=== PATIENT | male | born 1950 | race Caucasian/White ===

== ENCOUNTER → 2016-05-16 | Outpatient (CLI) | payer MEDICARE, BC, OTHER ==
[~2016-05-16] MED LIST: NORC5TAB PO
--- NOTE | 2016-05-21 08:53 | SLEEPCENT ---
DATE OF PROCEDURE: 05/16/2016 REQUESTING PROVIDER: Nayla Mota NP INTERPRETATION: Nocturnal polysomnography was performed due to concern for obstructive sleep apnea syndrome in this patient with a history of excessive somnolence, nonrestorative sleep and morning headaches. 9 hours and 27 minutes of data were reviewed. Of these, 5 hours and 13 minutes of sleep were identified. Sleep latency was normal at 8.5 minutes. Rapid eye movement (REM) latency was normal at 91 minutes. Sleep architecture showed fragmentation, but four REM periods were appreciated. Overall sleep efficiency was 95%. The patient's electrocardiogram (EKG) showed a sinus rhythm with an average heart rate of 56 beats per minute. Pulse rate ranged 40 to 75 beats per minute. Electroencephalogram (EEG) showed normal waveforms for awake and sleep. There were 218 respiratory events identified of 10 seconds in duration or greater for an apnea-hypopnea index of 25.5. The events were more commonly obstructive but48 central and mixed apneas were also seen. The respiratory events were not exclusive to sleep stage. They were more frequent in the supine posture, but not exclusive to that position. Arousals from respiratory events occurred 9 times per hour. Oxygen desaturations were seen into the low 80s. There was limb activity but minimal arousals from limb activity, and the remaining measures of sleep physiology were normal. IMPRESSION: Moderate to severe complex obstructive sleep apnea syndrome (G47.33). Apnea-hypopnea index of 25.5. RECOMMENDATIONS: The patient should be encouraged to return to the sleep disorder center for pressure therapy. Given the occurrence of central events, bilevel device may be necessary and a back up rate may be needed. In the interim, alcohol and sedative avoidance should be practiced and caution exercised during the operation of motor vehicles.
== END ==
LOC: M SLEEP 19:22
PROVIDERS: ATTEND Nurse Practitioner Adult Health
DX: G47.33 Obstructive sleep apnea (adult) (pediatric) (principal)

== ENCOUNTER → 2016-07-04 | Outpatient (CLI) | payer MEDICARE, BC, OTHER ==
[~2016-07-04] MED LIST changes: +NORC1TAB4 PO; -NORC5TAB PO
--- NOTE | 2016-07-10 06:40 | SLEEPCENT ---
DATE OF PROCEDURE: 07/04/2016 ORDERED BY: Nayla Mota. Nocturnal polysomnography was performed for the titration of pressure therapy in this patient with obstructive sleep apnea syndrome, apnea-hypopnea index of 25. For testing, the patient was fit with a [employer] Simplus full face mask of small size was used, 4 cm of water pressure were applied to the circuit and the lights were extinguished. 8 hours and 1 minute of data were reviewed. There were 440 minutes of sleep identified. Sleep latency was prolonged at 15 minutes. REM latency was prolonged at 201 minutes. Sleep architecture showed poor progression but there were 3 rapid eye movement (REM) periods appreciated. Overall sleep efficiency was 94.1%. Patient's EKG showed a sinus rhythm with an average heart rate of 65 beats per minute. EEG showed reasonably normal wave forms for wake and sleep. Respiratory events were fully palliated with CPAP at a pressure of 8. Some limb activity was appreciated on this study more prominently than on the diagnostic night. IMPRESSION: Obstructive sleep apnea syndrome (G47.33). RECOMMENDATION: Nightly use of pressure therapy 8 cm of water.
== END ==
LOC: M SLEEP 19:50
PROVIDERS: ATTEND Nurse Practitioner Adult Health
DX: G47.33 Obstructive sleep apnea (adult) (pediatric) (principal)

== ENCOUNTER 2017-12-22 09:34 | Day surgery (SDC) | payer MEDICARE, BC, OTHER ==
[2017-12-22] MEDS ORDERED: NS 1,000 ML IV (10:00)
[2017-12-22] MEDS ORDERED: PROPOFOL 200 MG/20 ML VIAL As Ordered (10:48)
== END 2017-12-22 11:33 | disposition home or self-care (01) ==
LOC: M OPP 09:34
DX: Z12.11 Encounter for screening for malignant neoplasm of colon (principal); Z86.010 Personal history of colon polyps; E78.5 Hyperlipidemia, unspecified; M19.90 Unspecified osteoarthritis, unspecified site; G47.30 Sleep apnea, unspecified; F32.9 Major depressive disorder, single episode, unspecified; F41.9 Anxiety disorder, unspecified; R06.83 Snoring; Z87.891 Personal history of nicotine dependence; Z79.82 Long term (current) use of aspirin
CPT/HCPCS: G0105

== ENCOUNTER → 2021-04-04 | Outpatient (REF) | payer MEDICARE, OTHER ==
[~2021-04-04] MED LIST changes: +ASPI81TA26 PO; -NORC1TAB4 PO; +NORC1TAB7 PO
== END ==
LOC: M SFHCADAM 09:49
PROVIDERS: ATTEND Physician Assistant
DX: Z86.79 Personal history of other diseases of the circulatory system (principal); Z12.5 Encounter for screening for malignant neoplasm of prostate
CPT/HCPCS: G0103; G0463

== ENCOUNTER → 2022-05-27 | Outpatient (REF) | payer MEDICARE, OTHER ==
[2022-05-27 13:28] LABS: HEMATOCRIT 43.8 % (42.0-52.0); HEMOGLOBIN 15.1 g/dl (13.5-17.5); MEAN CORPUSCULAR HEMOGLOBIN 31.3 pg (27.0-33.0); MEAN CORPUSCULAR HGB CONC 34.5 g/dl (32.0-36.5); MEAN CORPUSCULAR VOLUME 90.7 fl (80.0-96.0); PLATELET COUNT, AUTOMATED 181 10^3/uL (150-450); RED BLOOD COUNT 4.83 10^6/uL (4.30-6.10); WHITE BLOOD COUNT 6.6 10^3/uL (4.0-10.0)
[2022-05-27 13:54] LABS: ALBUMIN 3.6 G/DL (3.2-5.2); ALKALINE PHOSPHATASE 136 U/L (46-116); ALT/SGPT 47 U/L (7.0-40); AST/SGOT 29 U/L (<34); BILIRUBIN,TOTAL 0.8 MG/DL (0.3-1.2); BLOOD UREA NITROGEN 16 MG/DL (9-23); CALCIUM LEVEL 9.6 MG/DL (8.3-10.6); CARBON DIOXIDE LEVEL 30 MMOL/L (20-31); CHLORIDE LEVEL 104 MMOL/L (98-107); CREATININE FOR GFR 1.03 MG/DL (0.70-1.30); GLOMERULAR FILTRATION RATE > 60.0 (>42); GLUCOSE, FASTING 101 MG/DL (74-106); POTASSIUM SERUM 4.7 MMOL/L (3.5-5.1); SODIUM LEVEL 140 MMOL/L (136-145)
[2022-05-27 15:30] LABS: TOTAL PROTEIN 6.5 G/DL (5.7-8.2)
== END ==
LOC: M SFHCADAM 08:04
PROVIDERS: ATTEND Physician Assistant
DX: E78.00 Pure hypercholesterolemia, unspecified (principal); Z86.79 Personal history of other diseases of the circulatory system

== ENCOUNTER → 2022-06-04 | Outpatient (REF) | payer MEDICARE, OTHER ==
[2022-06-04 14:28] LABS: CHOLESTEROL RISK RATIO 3.61 (<5); HDL CHOLESTEROL 44.3 MG/DL (>40); LDL CHOLESTEROL 92.1 MG/DL (<100); NON-HDL-C 115.7 MG/DL
== END ==
LOC: M SFHCADAM 09:45
PROVIDERS: ATTEND Physician Assistant
DX: E78.00 Pure hypercholesterolemia, unspecified (principal); Z12.5 Encounter for screening for malignant neoplasm of prostate

== ENCOUNTER → 2023-06-09 | Outpatient (REF) | payer MEDICARE, OTHER ==
[2023-06-09 13:08] LABS: HEMOGLOBIN 11.7 g/dl (13.5-17.5); MEAN CORPUSCULAR HEMOGLOBIN 25.4 pg (27.0-33.0); MEAN CORPUSCULAR HGB CONC 30.8 g/dl (32.0-36.5); MEAN CORPUSCULAR VOLUME 82.4 fl (80.0-96.0); PLATELET COUNT, AUTOMATED 196 10^3/uL (150-450); RED BLOOD COUNT 4.61 10^6/uL (4.30-6.10)
[2023-06-09 13:14] LABS: PSA SCREENING 0.75 NG/ML (< 4.00)
[2023-06-09 13:16] LABS: ALBUMIN 3.9 G/DL (3.2-5.2); ALKALINE PHOSPHATASE 139 U/L (46-116); ALT/SGPT 31 U/L (7.0-40); AST/SGOT 19 U/L (<34); BILIRUBIN,TOTAL 0.5 MG/DL (0.3-1.2); BLOOD UREA NITROGEN 18 MG/DL (9-23); CALCIUM LEVEL 8.6 MG/DL (8.3-10.6); CARBON DIOXIDE LEVEL 28 MMOL/L (20-31); CHLORIDE LEVEL 106 MMOL/L (98-107); CHOLESTEROL LEVEL 151 MG/DL (<200); CHOLESTEROL RISK RATIO 3.36 (<5); CREATININE FOR GFR 0.97 MG/DL (0.70-1.30); GLOMERULAR FILTRATION RATE > 60.0 (>42); GLUCOSE, FASTING 99 MG/DL (74-106); HDL CHOLESTEROL 44.9 MG/DL (>40); LDL CHOLESTEROL 79.7 MG/DL (<100); NON-HDL-C 106.1 MG/DL; POTASSIUM SERUM 4.7 MMOL/L (3.5-5.1); SODIUM LEVEL 139 MMOL/L (136-145); TOTAL PROTEIN 6.7 G/DL (5.7-8.2); TRIGLYCERIDES LEVEL 132 MG/DL (<150)
== END ==
LOC: M SFHCADAM 08:59
PROVIDERS: ATTEND Physician Assistant
DX: E78.00 Pure hypercholesterolemia, unspecified (principal); Z86.79 Personal history of other diseases of the circulatory system; Z12.5 Encounter for screening for malignant neoplasm of prostate; G47.33 Obstructive sleep apnea (adult) (pediatric)
CPT/HCPCS: 80053; 80061; 85027; G0103

== ENCOUNTER 2023-07-04 19:50 | Observation (INO) | payer MEDICARE, OTHER ==
[~2023-07-04] VITALS: Ht 177.8 cm; Wt 84.7 kg
[2023-07-04 21:20] LABS: BASO # 0.1 10^3/uL (0.0-0.2); BASO % 1.9 % (0.0-1.0); EOS # 0.4 10^3/uL (0.0-0.5); EOS % 7.1 % (0.0-3.0); HEMATOCRIT 31.8 % (42.0-52.0); LYMPH # 1.6 10^3/uL (1.5-5.0); LYMPH % 25.8 % (24.0-44.0); MEAN CORPUSCULAR HEMOGLOBIN 24.9 pg (27.0-33.0); MEAN CORPUSCULAR HGB CONC 31.4 g/dl (32.0-36.5); MEAN CORPUSCULAR VOLUME 79.3 fl (80.0-96.0); MONO # 0.7 10^3/uL (0.0-0.8); MONO % 11.9 % (2.0-8.0); NEUTROPHILS # 3.3 10^3/uL (1.5-8.5); NEUTROPHILS % 53.1 % (36.0-66.0); PLATELET COUNT, AUTOMATED 218 10^3/uL (150-450); RED BLOOD COUNT 4.01 10^6/uL (4.30-6.10); WHITE BLOOD COUNT 6.2 10^3/uL (4.0-10.0)
[2023-07-04] MEDS: PANTOPRAZOLE 40MG VIAL IV ONE (21:25)
[2023-07-04] MEDS: NS 1,000 ML IV ONE (21:25)
[2023-07-04 21:41] LABS: LIPASE 38 U/L (12-53)
[2023-07-04 21:43] LABS: ALBUMIN 3.7 G/DL (3.2-5.2); ALKALINE PHOSPHATASE 117 U/L (46-116); ALT/SGPT 22 U/L (7.0-40); AST/SGOT 18 U/L (<34); BILIRUBIN,DIRECT 0.1 MG/DL (<0.4); BILIRUBIN,TOTAL 0.4 MG/DL (0.3-1.2); BLOOD UREA NITROGEN 20 MG/DL (9-23); CALCIUM LEVEL 9.1 MG/DL (8.3-10.6); CARBON DIOXIDE LEVEL 26 MMOL/L (20-31); CHLORIDE LEVEL 106 MMOL/L (98-107); CREATININE FOR GFR 1.05 MG/DL (0.70-1.30); GLOMERULAR FILTRATION RATE > 60.0 (>42); GLUCOSE, FASTING 114 MG/DL (74-106); POTASSIUM SERUM 4.3 MMOL/L (3.5-5.1); SODIUM LEVEL 140 MMOL/L (136-145); TOTAL PROTEIN 6.3 G/DL (5.7-8.2)
[2023-07-04 22:35] LABS: INR 0.98; PROTHROMBIN TIME 12.7 SECONDS (12.5-14.5)
[2023-07-04] MEDS ORDERED: ATOR40TA75 PO (23:05)
[2023-07-04] MEDS ORDERED: CLOT1CRE71 TOP (23:05)
[2023-07-04] MEDS ORDERED: SILD20TA11 PO (23:05)
[2023-07-04] MEDS ORDERED: HOME MED LIST COMPLETE! XX SCH (23:10)
[2023-07-04 23:26] LABS: PERCENT SATURATION 3.9 % (19.7-50.0)
[2023-07-04 23:29] LABS: FERRITIN 2.3 NG/ML (10.5-307.3); FOLATE 13.77 NG/ML (>5.4)
[2023-07-05] VITALS (7 sets, daily range): BP systolic 129–169; BP diastolic 62–82; TEMP 97.1–98.3; O2SAT 90–98
[2023-07-05] MEDS: LR 1,000 ML IV SCH (00:03)
[2023-07-05 04:21] LABS: HEMATOCRIT 26.7 % (42.0-52.0); HEMOGLOBIN 8.3 g/dl (13.5-17.5); MEAN CORPUSCULAR HEMOGLOBIN 24.9 pg (27.0-33.0); MEAN CORPUSCULAR HGB CONC 31.1 g/dl (32.0-36.5); MEAN CORPUSCULAR VOLUME 80.2 fl (80.0-96.0); PLATELET COUNT, AUTOMATED 159 10^3/uL (150-450); RED BLOOD COUNT 3.33 10^6/uL (4.30-6.10); WHITE BLOOD COUNT 4.9 10^3/uL (4.0-10.0)
[2023-07-05 04:53] LABS: BLOOD UREA NITROGEN 20 MG/DL (9-23); CALCIUM LEVEL 7.9 MG/DL (8.3-10.6); CARBON DIOXIDE LEVEL 28 MMOL/L (20-31); CHLORIDE LEVEL 108 MMOL/L (98-107); CREATININE FOR GFR 1.05 MG/DL (0.70-1.30); GLOMERULAR FILTRATION RATE > 60.0 (>42); GLUCOSE, FASTING 102 MG/DL (74-106); POTASSIUM SERUM 4.2 MMOL/L (3.5-5.1); SODIUM LEVEL 141 MMOL/L (136-145)
[2023-07-05 08:03] LABS: HEMATOCRIT 27.8 % (42.0-52.0); HEMOGLOBIN 8.6 g/dl (13.5-17.5)
[2023-07-05] MEDS: PANTOPRAZOLE 40MG VIAL IV SCH (09:58)
[2023-07-05] MEDS ORDERED: fentaNYL 100 MCG/2 ML INJECTION As Ordered ONE (11:44)
[2023-07-05] MEDS ORDERED: propofoL 200 MG/20 ML VIAL As Ordered ONE (11:44)
[2023-07-05] MEDS ORDERED: ONDANSETRON 4MG 2ML VIAL As Ordered ONE (11:44)
[2023-07-05] MEDS ORDERED: LIDOCAINE 2% 100MG/5ML SDV (FOR ANES.) As Ordered ONE (11:44)
[2023-07-05] MEDS: MOM 30ML SUSPENSION UDC PO ONE (12:31)
[2023-07-05] MEDS: FERRIC CARBOXYMALTOSE INJ 750 MG, VIAL MATE ADAPTER 1 EACH in NS 250 ML IV ONE (12:31)
[2023-07-05 12:43] LABS: HEMATOCRIT 27.8 % (42.0-52.0); HEMOGLOBIN 8.6 g/dl (13.5-17.5)
[2023-07-05] MEDS: ACETAMINOPHEN TAB 650MG DOSE (2X325MG) PO PRN (17:10)
[2023-07-05 18:32] LABS: HEMATOCRIT 27.9 % (42.0-52.0); HEMOGLOBIN 8.5 g/dl (13.5-17.5)
[2023-07-05] MEDS: POLYETHYLENE GLYCOL (MIRALAX) 238GM BOTTLE PO ONE (18:33)
[2023-07-05] MEDS: ATORVASTATIN 20 MG TAB PO SCH (20:32)
[2023-07-06 00:35] LABS: HEMATOCRIT 26.6 % (42.0-52.0); HEMOGLOBIN 8.2 g/dl (13.5-17.5)
[2023-07-06 03:30] VITALS: BP 140/62; TEMP 97.9; O2SAT 91
[2023-07-06 04:29] LABS: BASO # 0.1 10^3/uL (0.0-0.2); BASO % 1.9 % (0.0-1.0); EOS # 0.6 10^3/uL (0.0-0.5); EOS % 12.7 % (0.0-3.0); HEMATOCRIT 27.3 % (42.0-52.0); HEMOGLOBIN 8.5 g/dl (13.5-17.5); LYMPH # 1.1 10^3/uL (1.5-5.0); LYMPH % 24.5 % (24.0-44.0); MEAN CORPUSCULAR HEMOGLOBIN 25.1 pg (27.0-33.0); MEAN CORPUSCULAR HGB CONC 31.1 g/dl (32.0-36.5); MEAN CORPUSCULAR VOLUME 80.8 fl (80.0-96.0); MONO # 0.6 10^3/uL (0.0-0.8); MONO % 12.4 % (2.0-8.0); NEUTROPHILS # 2.3 10^3/uL (1.5-8.5); NEUTROPHILS % 48.3 % (36.0-66.0); PLATELET COUNT, AUTOMATED 169 10^3/uL (150-450); RED BLOOD COUNT 3.38 10^6/uL (4.30-6.10); WHITE BLOOD COUNT 4.7 10^3/uL (4.0-10.0)
[2023-07-06 04:55] LABS: BLOOD UREA NITROGEN 12 MG/DL (9-23); CALCIUM LEVEL 8.2 MG/DL (8.3-10.6); CARBON DIOXIDE LEVEL 29 MMOL/L (20-31); CHLORIDE LEVEL 110 MMOL/L (98-107); CREATININE FOR GFR 1.01 MG/DL (0.70-1.30); GLOMERULAR FILTRATION RATE > 60.0 (>42); GLUCOSE, FASTING 97 MG/DL (74-106); MAGNESIUM LEVEL 2.1 MG/DL (1.8-2.4); POTASSIUM SERUM 4.4 MMOL/L (3.5-5.1); SODIUM LEVEL 142 MMOL/L (136-145)
[2023-07-06 07:27] VITALS: BP 136/63; TEMP 97; O2SAT 91
[2023-07-06] MEDS: ACETAMINOPHEN *IV* 1,000 MG in IV 1 EA IV ONE (08:24)
[2023-07-06] MEDS ORDERED: PHENYLephrine 500MCG 5ML (100MCG/ML) SYRINGE As Ordered ONE (11:55)
[2023-07-06] MEDS ORDERED: ePHEDrine SULFATE 25 MG/5 ML(5MG/ML) SYRINGE As Ordered ONE (11:55)
[2023-07-06] MEDS ORDERED: GLYCOPYRROLATE INJ 0.2 MG/ML 2 ML VIAL As Ordered ONE (12:28)
[2023-07-06] MEDS ORDERED: ONDANSETRON 4MG 2ML VIAL IV PRN (13:00)
[2023-07-06] MEDS ORDERED: LR 1,000 ML IV SCH (13:00)
[2023-07-06 13:31] VITALS: BP 168/78; TEMP 98; O2SAT 94
[2023-07-06 13:55] LABS: HEMATOCRIT 29.2 % (42.0-52.0)
[2023-07-06 14:10] VITALS: BP 133/98; TEMP 98.3; O2SAT 98
[2023-07-06] MEDS ORDERED: PANT40TA29 PO (14:15)
[2023-07-06] MEDS ORDERED: FAMO40TA3 PO (14:18)
[2023-07-06] MEDS ORDERED: MM S100C PO (14:22)
[2023-07-06] MEDS ORDERED: FERR325T3 PO (14:22)
== END 2023-07-06 15:13 | disposition home or self-care (01) ==
LOC: M ED 19:50 → M ED INP 19:51 → ENRESERV 07-05 02:06 → M MS5PR 07-05 02:50 → M ICU 07-05 09:14 → M PCU 07-05 16:19
PROVIDERS: ADMIT Preventive Medicine Undersea and Hyperbaric Medicine; ATTEND Preventive Medicine Undersea and Hyperbaric Medicine
DX: K55.21 Angiodysplasia of colon with hemorrhage (principal); D12.4 Benign neoplasm of descending colon; D12.8 Benign neoplasm of rectum; K92.1 Melena; D62 Acute posthemorrhagic anemia; K57.30 Diverticulosis of large intestine without perforation or abscess without bleeding; K29.50 Unspecified chronic gastritis without bleeding; K22.70 Barrett's esophagus without dysplasia; K20.90 Esophagitis, unspecified without bleeding; D50.9 Iron deficiency anemia, unspecified; K22.89 Other specified disease of esophagus; I25.10 Atherosclerotic heart disease of native coronary artery without angina pectoris; Z95.5 Presence of coronary angioplasty implant and graft; I65.22 Occlusion and stenosis of left carotid artery; Z98.62 Peripheral vascular angioplasty status; G47.33 Obstructive sleep apnea (adult) (pediatric); Z87.891 Personal history of nicotine dependence; F32.A Depression, unspecified; R51.9 Headache, unspecified; Z79.1 Long term (current) use of non-steroidal anti-inflammatories (NSAID); E78.5 Hyperlipidemia, unspecified; Z79.899 Other long term (current) drug therapy; Z79.82 Long term (current) use of aspirin
CPT/HCPCS: 36415; 43239; 45382; 45385; 80048; 80076; 82607; 82728; 82746; 83550; 83605; 83690; 83735; 85014; 85018; 85025; 85027; 85610; 86850; 86900; 86901; 88305; 93005; 96361; 96365; 96375; 96376; 99285; C9113; G0378; J0131; J1439; J2405; J3010

== ENCOUNTER → 2023-07-10 | Outpatient (REF) | payer MEDICARE, BC ==
[~2023-07-10] MED LIST changes: +ATOR40TA75 PO; +CLOT1CRE71 TOP; +FAMO40TA3 PO; +FERR325T3 PO; +MM S100C PO; +PANT40TA29 PO; +SILD20TA11 PO
== END ==
LOC: M SFHCADAM 11:11
PROVIDERS: ATTEND Physician Assistant
DX: Z87.19 Personal history of other diseases of the digestive system (principal); D50.0 Iron deficiency anemia secondary to blood loss (chronic); I99.8 Other disorder of circulatory system; K22.719 Barrett's esophagus with dysplasia, unspecified

== ENCOUNTER → 2023-07-20 | Outpatient (CLI) | payer MEDICARE, BC | LOC: M CARPUL 09:05 | PROVIDERS: ATTEND Physician Assistant | DX: R01.1 Cardiac murmur, unspecified (principal) ==

== ENCOUNTER → 2023-08-18 | Outpatient (REF) | payer MEDICARE, BC ==
[2023-08-18 13:05] LABS: BASO # 0.1 10^3/uL (0.0-0.2); BASO % 1.8 % (0.0-1.0); EOS # 0.5 10^3/uL (0.0-0.5); EOS % 7.9 % (0.0-3.0); HEMOGLOBIN 13.9 g/dl (13.5-17.5); LYMPH # 1.5 10^3/uL (1.5-5.0); LYMPH % 23.8 % (24.0-44.0); MEAN CORPUSCULAR HEMOGLOBIN 28.7 pg (27.0-33.0); MEAN CORPUSCULAR HGB CONC 32.3 g/dl (32.0-36.5); MEAN CORPUSCULAR VOLUME 88.7 fl (80.0-96.0); MONO # 0.7 10^3/uL (0.0-0.8); MONO % 11.8 % (2.0-8.0); NEUTROPHILS # 3.3 10^3/uL (1.5-8.5); NEUTROPHILS % 54.2 % (36.0-66.0); PLATELET COUNT, AUTOMATED 193 10^3/uL (150-450); RED BLOOD COUNT 4.85 10^6/uL (4.30-6.10); WHITE BLOOD COUNT 6.2 10^3/uL (4.0-10.0)
[2023-08-18 13:09] LABS: ALBUMIN 3.5 G/DL (3.2-5.2); ALKALINE PHOSPHATASE 130 U/L (46-116); ALT/SGPT 37 U/L (7.0-40); AST/SGOT 19 U/L (<34); BILIRUBIN,TOTAL 0.4 MG/DL (0.3-1.2); BLOOD UREA NITROGEN 17 MG/DL (9-23); CALCIUM LEVEL 9.2 MG/DL (8.3-10.6); CARBON DIOXIDE LEVEL 30 MMOL/L (20-31); CHLORIDE LEVEL 108 MMOL/L (98-107); CREATININE FOR GFR 0.98 MG/DL (0.70-1.30); GLOMERULAR FILTRATION RATE > 60.0 (>42); GLUCOSE, FASTING 91 MG/DL (74-106); IRON (FE) 62 UG/DL (65-175); PERCENT SATURATION 18.1 % (19.7-50.0); POTASSIUM SERUM 4.4 MMOL/L (3.5-5.1); SODIUM LEVEL 142 MMOL/L (136-145); TOTAL IRON BINDING CAPACITY 342 UG/DL (250-425); TOTAL PROTEIN 6.2 G/DL (5.7-8.2)
[2023-08-18 13:14] LABS: FERRITIN 15.8 NG/ML (10.5-307.3)
== END ==
LOC: M SFHCADAM 08:23
PROVIDERS: ATTEND Physician Assistant
DX: Z87.19 Personal history of other diseases of the digestive system (principal); D50.0 Iron deficiency anemia secondary to blood loss (chronic); I99.8 Other disorder of circulatory system; K22.719 Barrett's esophagus with dysplasia, unspecified

== ENCOUNTER → 2024-03-03 | Outpatient (REF) | payer MEDICARE, BC ==
[2024-03-03 17:24] LABS: BASO # 0.1 10^3/uL (0.0-0.2); EOS # 0.4 10^3/uL (0.0-0.5); EOS % 8.2 % (0.0-3.0); HEMATOCRIT 42.2 % (42.0-52.0); HEMOGLOBIN 13.5 g/dl (13.5-17.5); LYMPH # 1.6 10^3/uL (1.5-5.0); MEAN CORPUSCULAR HEMOGLOBIN 28.1 pg (27.0-33.0); MEAN CORPUSCULAR VOLUME 87.7 fl (80.0-96.0); MONO # 0.6 10^3/uL (0.0-0.8); MONO % 11.7 % (2.0-8.0); NEUTROPHILS # 2.3 10^3/uL (1.5-8.5); NEUTROPHILS % 45.9 % (36.0-66.0); PLATELET COUNT, AUTOMATED 197 10^3/uL (150-450); RED BLOOD COUNT 4.81 10^6/uL (4.30-6.10)
[2024-03-03 17:25] LABS: ALBUMIN 3.7 G/DL (3.2-5.2); ALKALINE PHOSPHATASE 132 U/L (40-129); ALT/SGPT 26 U/L (7.0-40); AST/SGOT 19 U/L (<34); BILIRUBIN,TOTAL 0.5 MG/DL (0.3-1.2); BLOOD UREA NITROGEN 14 MG/DL (9-23); CALCIUM LEVEL 9.7 MG/DL (8.3-10.6); CARBON DIOXIDE LEVEL 28 MMOL/L (20-31); CHLORIDE LEVEL 105 MMOL/L (98-107); CHOLESTEROL LEVEL 172 MG/DL (<200); CHOLESTEROL RISK RATIO 3.32 (<5); CREATININE FOR GFR 0.81 MG/DL (0.70-1.30); GLOMERULAR FILTRATION RATE > 60.0 (>42); GLUCOSE, FASTING 96 MG/DL (74-106); HDL CHOLESTEROL 51.8 MG/DL (>40); LDL CHOLESTEROL 100.2 MG/DL (<100); NON-HDL-C 120.2 MG/DL; POTASSIUM SERUM 4.6 MMOL/L (3.5-5.1); SODIUM LEVEL 140 MMOL/L (136-145); TOTAL PROTEIN 6.7 G/DL (5.7-8.2); TRIGLYCERIDES LEVEL 100 MG/DL (<150)
[2024-03-03 17:27] LABS: FOLATE 15.5 NG/ML (>5.4); VITAMIN B12 LEVEL 380 PG/ML (211-911)
== END ==
LOC: M SFHCADAM 13:05
PROVIDERS: ATTEND Physician Assistant
DX: R06.09 Other forms of dyspnea (principal); E78.00 Pure hypercholesterolemia, unspecified; Z87.19 Personal history of other diseases of the digestive system; K22.719 Barrett's esophagus with dysplasia, unspecified; Z79.82 Long term (current) use of aspirin; Z87.891 Personal history of nicotine dependence; I10 Essential (primary) hypertension; R00.1 Bradycardia, unspecified; Z28.21 Immunization not carried out because of patient refusal; B37.9 Candidiasis, unspecified
CPT/HCPCS: 80053; 80061; 82607; 82746; 85025; 94010; G0463

== ENCOUNTER → 2024-04-07 | Outpatient (CLI) | payer MEDICARE, BC | LOC: M CARPUL 08:11 | PROVIDERS: ATTEND Physician Assistant | DX: R06.09 Other forms of dyspnea (principal) ==

== ENCOUNTER → 2025-01-16 | Outpatient (CLI) | payer MEDICARE, BC ==
[~2025-01-16] MED LIST changes: -SILD20TA11 PO; +SILD20TA64 PO
== END ==
LOC: M ADAMS 09:26
PROVIDERS: ATTEND Physician Assistant
DX: R06.09 Other forms of dyspnea (principal)

== ENCOUNTER → 2025-01-16 | Outpatient (REF) | payer MEDICARE, BC ==
[2025-01-16 13:16] LABS: ALT/SGPT 26.0 U/L (7.0-40); AST/SGOT 20.0 U/L (<34); CALCIUM LEVEL 8.8 MG/DL (8.3-10.6); CARBON DIOXIDE LEVEL 26.0 MMOL/L (20-31); CHLORIDE LEVEL 107.0 MMOL/L (98-107); CHOLESTEROL LEVEL 146.0 MG/DL (<200); CHOLESTEROL RISK RATIO 3.44 (<5); CREATININE FOR GFR 1.07 MG/DL (0.70-1.30); GLOMERULAR FILTRATION RATE 71.9 (>42); LDL CHOLESTEROL 82.2 MG/DL (<100); NON-HDL-C 103.6 MG/DL; POTASSIUM SERUM 4.8 MMOL/L (3.5-5.1); SODIUM LEVEL 142.0 MMOL/L (136-145); TRIGLYCERIDES LEVEL 107.0 MG/DL (<150)
[2025-01-16 13:44] LABS: ESTIMATED AVERAGE GLUCOSE 134.0 MG/DL (60-110)
== END ==
LOC: M SFHCADAM 09:24
PROVIDERS: ATTEND Physician Assistant
DX: E78.00 Pure hypercholesterolemia, unspecified (principal); I10 Essential (primary) hypertension; Z79.899 Other long term (current) drug therapy

== ENCOUNTER → 2025-03-20 | Outpatient (CLI) | payer MEDICARE, BC | LOC: M RAD 15:09 | PROVIDERS: ATTEND Physician Assistant | DX: R06.02 Shortness of breath (principal) ==